=== PATIENT | male | born 1970 | race Caucasian/White ===

== ENCOUNTER 2017-12-26 19:11 | Emergency (ER) | payer OTHER ==
[2017-12-26 19:25] VITALS: BP 136/85
[2017-12-26] MEDS ORDERED: Sodium Chloride 0.9% 10 ML Syringe FLUSH PRN (19:50)
[2017-12-26] MEDS ORDERED: Sodium Chloride 0.9% 1,000 ML IV ONE (20:06)
[2017-12-26] MEDS ORDERED: SUMAtriptan 50 MG Tab PO ONE (20:07)
--- NOTE | 2017-12-26 20:23 | EDM.PDOC ---
ED HPI GENERAL MEDICAL PROBLEM - General Chief Complaint: Headache Stated Complaint: headache Time Seen by Provider: 12/26/17 19:13 Source of Information: Reports: Patient History Limitations: Reports: No Limitations - History of Present Illness INITIAL COMMENTS - FREE TEXT/NARRATIVE: One week history of headache. Worse headache of life. Gradually worsening. Located behind right eye/forehead. Vision feels blurry at times. No ENT complaints. No new neck pain (has chronic neck/back pain and previous fusion surgeries). Denies focal neuro changes. No nausea/emesis. Did have some loose stools several days ago. Has photophobia. No other reported changes. Did start Wellbutrin approximately one month ago. No other medication/ supplement changes. 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 Headache Pain Score (Numeric/FACES): 8 - Related Data Allergies Allergy/AdvReac Type Severity Reaction Status Date / Time No Known Allergies Allergy Verified 12/26/17 19:12 Home Meds: Home Meds Pantoprazole Sodium [Protonix] 40 mg PO DAILY 01/10/14 [History] Excedrine Extra Strength 2 tab PO Q6H 12/26/17 [History] Ibuprofen [Advil] 600 mg PO Q6H 12/26/17 [History] buPROPion HCl [Wellbutrin SR] 150 mg PO BID 12/26/17 [History] Past Medical History Gastrointestinal History: Reports: GERD - Past Surgical History Neurological Surgical History: Reports: C-Spine (fusion), Spinal Fusion Social & Family History - Family History Family Medical History: Noncontributory - Tobacco Use Smoking Status *Q: Current Every Day Smoker Years of Tobacco use: 20 Used Tobacco, but Quit: No Second Hand Smoke Exposure: No - Alcohol Use Days Per Week of Alcohol Use: 1 Number of Drinks Per Day: 4 Total Drinks Per Week: 4 - Recreational Drug Use Recreational Drug Use: No Drug Use in Last 12 Months: No ED ROS GENERAL - Review of Systems Review Of Systems: See Below Constitutional: Reports: Decreased Appetite. Denies: Fever, Chills, Weakness, Night Sweats, Diaphoresis, Weight Loss, Weight Gain HEENT: Reports: Vision Change. Denies: Dental Pain, Ear Discharge, Ear Pain, Eye Discharge, Rhinitis, Throat Pain, Throat Swelling, Vertigo Respiratory: Reports: No Symptoms Cardiovascular: Reports: No Symptoms Endocrine: Reports: No Symptoms GI/Abdominal: Reports: No Symptoms : Reports: No Symptoms Musculoskeletal: Reports: No Symptoms (no acute changes) Skin: Reports: No Symptoms Neurological: Reports: Headache. Denies: Confusion, Dizziness, Numbness, Paresthesia, Pre-Existing Deficit, Seizure, Syncope, Trouble Speaking, Difficulty Walking, Weakness, Change in Speech, Gait Disturbance Psychiatric: Reports: No Symptoms Hematologic/Lymphatic: Reports: No Symptoms - Physical Exam Exam: See Below Exam Limited By: No Limitations General Appearance: Alert, WD/WN, No Apparent Distress Eye Exam: Bilateral Eye: EOMI, PERRL Ears: Normal External Exam, Normal Canal, Hearing Grossly Normal, Normal TMs Nose: Normal Inspection, Normal Mucosa, No Blood Throat/Mouth: Normal Inspection, Normal Lips, Normal Voice, No Airway Compromise Head Exam: Atraumatic, Normocephalic Neck: Normal Inspection, Supple, Non-Tender, Full Range of Motion Respiratory/Chest: No Respiratory Distress, Lungs Clear, Normal Breath Sounds, No Accessory Muscle Use Cardiovascular: Normal Peripheral Pulses, Regular Rate, Rhythm, No Edema, No Murmur GI/Abdominal: Normal Bowel Sounds, Soft, Non-Tender, No Distention (Male) Exam: Deferred Rectal (Males) Exam: Deferred Neuro Exam (Abbreviated): Alert, Oriented, CN II-XII Intact, Normal Cognition, Normal Gait, Normal Reflexes, No Motor/Sensory Deficits DTR: 1+: Bicep (R), Bicep (L), Patella (R), Patella (L) Back Exam: No: CVA Tenderness (L), CVA Tenderness (R) Extremities: Normal Inspection, Normal Range of Motion, Non-Tender, No Pedal Edema, Normal Capillary Refill Psychiatric: Normal Affect, Normal Mood Skin Exam: Warm, Dry, Intact, Normal Color Course - Vital Signs Last Recorded V/S: Last Vital Signs Temp 36.7 C 12/26/17 19:24 Pulse 86 12/26/17 19:24 Resp 20 12/26/17 19:24 BP 136/85 12/26/17 19:24 Pulse Ox 98 12/26/17 19:24 - Orders/Labs/Meds Orders: Active Orders 24 hr Category Date Time Status Oxygen Therapy Adult [Oxygen Therapy, ED] [RC] Care 12/26/17 19:41 Ordered ASDIRECTED Head wo Cont [CT] Stat Exams 12/26/17 19:40 Ordered Sodium Chloride 0.9% [Saline Flush] Med 12/26/17 19:50 Active 10 ml FLUSH ASDIRECTED PRN Saline Lock Insert [OM.PC] Routine Oth 12/26/17 19:50 Ordered Medication Orders Sodium Chloride (Saline Flush) 10 ml FLUSH ASDIRECTED PRN PRN Reason: Keep Vein Open Labs: Laboratory Tests 12/26/17 12/26/17 Range/Units 20:12 20:12 WBC 9.7 (4.0-10.2) K/uL RBC 4.68 (4.33-5.41) M/uL Hgb 14.2 (13.1-16.8) g/dL Hct 44.0 (39.0-49.0) % MCV 94.0 (84.0-98.0) fL MCH 30.3 (28.2-33.3) pg MCHC 32.3 (31.7-36.0) g/dL RDW 14.4 H (11.2-14.1) % Plt Count 214 (150-350) K/uL Neut % (Auto) 51.1 (45.0-80.0) % Lymph % (Auto) 36.0 (10.0-50.0) % Waldo % (Auto) 9.8 (2.0-14.0) % Eos % (Auto) 2.8 (0.0-5.0) % Baso % (Auto) 0.3 (0.0-2.0) % Neut # (Auto) 4.96 (1.40-7.00) K/uL Lymph # (Auto) 3.49 (0.50-3.50) K/uL Waldo # (Auto) 0.95 (0.00-1.00) K/uL Eos # (Auto) 0.27 (0.00-0.50) K/uL Baso # (Auto) 0.03 (0.00-0.20) K/uL Sodium 139 (136-145) mmol/L Potassium 4.0 (3.5-5.1) mmol/L Chloride 107 (98-107) mmol/L Carbon Dioxide 20.3 L (21.0-32.0) mmol/L BUN 20 H (7-18) mg/dL Creatinine 0.96 (0.51-1.17) mg/dL Est Cr Clr Drug Dosing 99.14 mL/min Estimated GFR (MDRD) > 60 mL/min Glucose 101 (74-106) mg/dL Calcium 8.9 (8.5-10.1) mg/dL Total Bilirubin 0.2 (0.2-1.0) mg/dL AST 22 (15-37) U/L ALT 55 (12-78) U/L Alkaline Phosphatase 87 (46-116) IU/L Total Protein 7.5 (6.4-8.2) g/dL Albumin 4.1 (3.4-5.0) g/dL Meds: Medications Generic Name Dose Route Start Last Admin Trade Name Freq PRN Reason Stop Dose Admin Sodium Chloride 10 ml 12/26/17 19:50 Saline Flush FLUSH ASDIRECTED PRN Keep Vein Open Discontinued Medications Generic Name Dose Route Start Last Admin Trade Name Freq PRN Reason Stop Dose Admin Diphenhydramine HCl 50 mg 12/26/17 21:09 12/26/17 21:19 Benadryl IVPUSH 12/26/17 21:10 50 mg ONETIME ONE Administration Fentanyl 100 mcg 12/26/17 21:08 12/26/17 21:18 Sublimaze IVPUSH 12/26/17 21:09 100 mcg ONETIME ONE Administration Sodium Chloride 1,000 mls @ 999 mls/hr 12/26/17 20:06 12/26/17 20:23 Normal Saline IV 12/26/17 21:06 999 mls/hr .BOLUS ONE Administration Ketorolac Tromethamine 30 mg 12/26/17 21:08 12/26/17 21:39 Toradol IVPUSH 12/26/17 21:09 30 mg ONETIME ONE Administration Methylprednisolone Sodium Succinate 125 mg 12/26/17 21:08 12/26/17 21:18 Solu-Medrol IVPUSH 12/26/17 21:09 125 mg ONETIME ONE Administration Sumatriptan Succinate 50 mg 12/26/17 20:07 12/26/17 20:24 Imitrex PO 12/26/17 20:08 50 mg ONETIME ONE Administration - Radiology Interpretation Free Text/Narrative:: CT unremarkable for acute change per Radiology reading. CT Results Date: 12/26/17 - Re-Assessments/Exams Free Text/Narrative Re-Assessment/Exam: 12/26/17 21:48 Unremarkable labs/CT No change in pain with oxygen nor with Imitrex. Differential includes cluster headache and side effect of Wellbutrin. Uncertain as to specific cause at this time. No insect bite exposure given time of year. No other symptoms to suggest viral infection or other type of infection. Will have patient hold Wellbutrin for this week. Pain did significantly improve after combination of IV fluids/Fentanyl/Toradol given. Benadryl and Solumedrol also included in treatment plan. Patient wishes to go home. He is to watch for changes and follow up with primary provider/eye provider Thursday or Thursday if symptoms persist. Departure - Departure Time of Disposition: 21:41 Disposition: Home, Self-Care 01 Condition: Good Clinical Impression: Chronic headache Qualifiers: Headache type: unspecified Intractability: intractable Qualified Code(s): R51 - Headache - Discharge Information Instructions: Cluster Headache, [id number], General Headache Without Cause, [id number] Referrals: Vasquez Mann NP [Primary Care Provider] - Forms: ED Department Discharge Additional Instructions: See how headache feels over the next few days. As we discussed, specific cause is uncertain at this time. Hold Wellbutrin this week as that can cause headache/vision changes. Recommend getting eye pressure/eyes checked early next week if symptoms have not resolved. Follow up with your primary provider this week if headache continues as further testing may be required. Continue to observe for changes/new symptoms that may help identify cause. - My Orders Last 24 Hours: My Active Orders 12/26/17 19:40 Head wo Cont [CT] Stat 12/26/17 19:41 Oxygen Therapy Adult [Oxygen Therapy, ED] [] ASDIRECTED 12/26/17 19:50 Sodium Chloride 0.9% [Saline Flush] 10 ml FLUSH ASDIRECTED PRN Saline Lock Insert [OM.PC] Routine - Assessment/Plan Last 24 Hours: My Active Orders 12/26/17 19:40 Head wo Cont [CT] Stat 12/26/17 19:41 Oxygen Therapy Adult [Oxygen Therapy, ED] [] ASDIRECTED 12/26/17 19:50 Sodium Chloride 0.9% [Saline Flush] 10 ml FLUSH ASDIRECTED PRN Saline Lock Insert [OM.PC] Routine
[2017-12-26 20:31] LABS: CHLORIDE,CL 107 mmol/L (98-107); SODIUM,NA 139 mmol/L (136-145)
[2017-12-26] MEDS ORDERED: fentaNYL 100 MCG/2 ML SDV IVPUSH ONE (21:08)
[2017-12-26] MEDS ORDERED: Ketorolac 30 MG/ML SDV IVPUSH ONE (21:08)
[2017-12-26] MEDS ORDERED: methylPREDNISolone Sodium Succinate 125 MG/2 ML SDV IVPUSH ONE (21:08)
[2017-12-26] MEDS ORDERED: diphenhydrAMINE 50 MG/ML SDV IVPUSH ONE (21:09)
== END 2017-12-26 22:00 | disposition home or self-care (01) ==
LOC: LL.ED 19:11
DX: R51 Headache (principal); G89.29 Other chronic pain; F17.210 Nicotine dependence, cigarettes, uncomplicated; Z79.899 Other long term (current) drug therapy
CPT/HCPCS: 36415; 70450; 80053; 85025; 96361; 96374; 96375; 99284; A9270-GY; J1200; J1885; J2930; J3010; J7030

== ENCOUNTER 2018-04-06 16:13 | Emergency (ER) | payer OTHER ==
[2018-04-06 16:17] VITALS: BP 156/90
[2018-04-06] MEDS: LORazepam 2 MG/ML SDV IM ONE (16:23)
[2018-04-06] MEDS: Ketorolac 60 MG/2 ML SDV IM ONE (16:24)
--- NOTE | 2018-04-06 16:26 | EDM.PDOC ---
ED HPI GENERAL MEDICAL PROBLEM - General Chief Complaint: General Stated Complaint: neck pain Time Seen by Provider: 04/06/18 16:15 Source of Information: Reports: Patient, Family History Limitations: Reports: No Limitations - History of Present Illness INITIAL COMMENTS - FREE TEXT/NARRATIVE: Patient is a 47-year-old who recently had his neck views about 4-5 per 5-6 weeks ago decided to mow the lawn while riding and mowing the lawn he bounced up and down a few times after finishing the lawn he went in to go warm bath and at that point severe muscle spasm and neck pain started patient was brought in to the ER for evaluation Onset: Today, Sudden Duration: Minutes: (90 minutes ago), Constant (Worse with movement) Location: Reports: Neck (Posterior neck) Quality: Reports: Sharp, Stabbing, Throbbing, Other (With movement) Severity: Moderate Improves with: Reports: Cold Therapy Worsens with: Reports: Heat Therapy Context: Reports: Activity Associated Symptoms: Reports: No Other Symptoms left sided neck pain Pain Score (Numeric/FACES): 8 - Related Data Allergies Allergy/AdvReac Type Severity Reaction Status Date / Time No Known Allergies Allergy Verified 04/06/18 16:17 Home Meds: Home Meds Omeprazole Magnesium [Prilosec Otc] 40 mg PO DAILY 04/06/18 [History] Past Medical History Gastrointestinal History: Reports: GERD - Past Surgical History Neurological Surgical History: Reports: C-Spine, Spinal Fusion Social & Family History - Family History Family Medical History: Noncontributory ED ROS GENERAL - Review of Systems Review Of Systems: See Below Constitutional: Reports: No Symptoms HEENT: Reports: No Symptoms Respiratory: Reports: No Symptoms Cardiovascular: Reports: No Symptoms Endocrine: Reports: No Symptoms GI/Abdominal: Reports: No Symptoms : Reports: No Symptoms Musculoskeletal: Reports: Neck Pain Skin: Reports: No Symptoms Neurological: Reports: No Symptoms Psychiatric: Reports: No Symptoms Hematologic/Lymphatic: Reports: No Symptoms Immunologic: Reports: No Symptoms ED EXAM, GENERAL - Physical Exam Exam: See Below Exam Limited By: No Limitations General Appearance: Alert, WD/WN, No Apparent Distress Ears: Normal External Exam, Normal Canal, Hearing Grossly Normal, Normal TMs Ear Exam: Bilateral Ear: Auricle Normal, Canal Normal, TM normal Nose: Normal Inspection, Normal Mucosa, No Blood Throat/Mouth: Normal Inspection, Normal Lips, Normal Teeth, Normal Gums, Normal Oropharynx, Normal Voice, No Airway Compromise Head: Atraumatic, Normocephalic Neck: Normal Inspection, Supple, Non-Tender, Full Range of Motion Respiratory/Chest: No Respiratory Distress, Lungs Clear, Normal Breath Sounds, No Accessory Muscle Use, Chest Non-Tender Cardiovascular: Normal Peripheral Pulses, Regular Rate, Rhythm, No Edema, No Gallop, No JVD, No Murmur, No Rub GI/Abdominal: Normal Bowel Sounds, Soft, Non-Tender, No Organomegaly, No Distention, No Abnormal Bruit, No Mass (Male) Exam: No Hernia, Normal Inspection, Normal Prostate, Circumcised Rectal (Males) Exam: Normal Exam Back Exam: Muscle Spasm, Paraspinal Tenderness, Vertebral Tenderness, Other ( Mostly in the neck) Extremities: Normal Inspection, Normal Range of Motion, Non-Tender, Normal Capillary Refill, No Pedal Edema Neurological: Alert, Oriented, CN II-XII Intact, Normal Cognition, Normal Gait, Normal Reflexes, No Motor/Sensory Deficits, Sensory/Motor Deficit (C6-C7 numbness reviewed MRI MRI shows stenosis at C5-C6 also importance reviewed x- rays of the neck revealed no changes in fusion with excellent appearing of the plates) Psychiatric: Normal Affect, Normal Mood Skin Exam: Warm, Dry, Intact, Normal Color, No Rash Lymphatic: No Adenopathy Course - Vital Signs Last Recorded V/S: Last Vital Signs Temp 98.5 F 04/06/18 16:14 Pulse 76 04/06/18 16:14 Resp 18 04/06/18 16:14 BP 156/90 H 04/06/18 16:14 Pulse Ox 100 04/06/18 16:14 - Orders/Labs/Meds Orders: Active Orders 24 hr Category Date Time Status C-Spine [Cervical Spine 2V or 3V] [CR] Stat Exams 04/06/18 17:11 Ordered Meds: Medications Discontinued Medications Generic Name Dose Route Start Last Admin Trade Name Freq PRN Reason Stop Dose Admin Hydromorphone HCl 2 mg 04/06/18 17:16 Dilaudid IM 04/06/18 17:17 ONETIME ONE Ketorolac Tromethamine 60 mg 04/06/18 16:19 04/06/18 16:24 Toradol IM 04/06/18 16:20 60 mg ONETIME ONE Administration Lorazepam 2 mg 04/06/18 16:18 04/06/18 16:23 Ativan IM 04/06/18 16:19 2 mg ONETIME ONE Administration Departure - Departure Time of Disposition: 17:55 Disposition: Home, Self-Care 01 Condition: Poor Clinical Impression: Neck pain, acute - Discharge Information *PRESCRIPTION DRUG MONITORING PROGRAM REVIEWED*: Yes *COPY OF PRESCRIPTION DRUG MONITORING REPORT IN PATIENT FARHANA: Yes Referrals: Lisbeth Gamez [facility] [Primary Care Provider] - Forms: ED Department Discharge Care Plan Goals: ED HPI GENERAL MEDICAL PROBLEM - General Chief Complaint: General Stated Complaint: neck pain Time Seen by Provider: 04/06/18 16:15 Source of Information: Reports: Patient, Family History Limitations: Reports: No Limitations - History of Present Illness INITIAL COMMENTS - FREE TEXT/NARRATIVE: Patient is a 47-year-old who recently had his neck views about 4-5 per 5-6 weeks ago decided to mow the lawn while riding and mowing the lawn he bounced up and down a few times after finishing the lawn he went in to go warm bath and at that point severe muscle spasm and neck pain started patient was brought in to the ER for evaluation Onset: Today, Sudden Duration: Minutes: (90 minutes ago), Constant (Worse with movement) Location: Reports: Neck (Posterior neck) Quality: Reports: Sharp, Stabbing, Throbbing, Other (With movement) Severity: Moderate Improves with: Reports: Cold Therapy Worsens with: Reports: Heat Therapy Context: Reports: Activity Associated Symptoms: Reports: No Other Symptoms left sided neck pain Pain Score (Numeric/FACES): 8 - Related Data Allergies Allergy/AdvReac Type Severity Reaction Status Date / Time No Known Allergies Allergy Verified 04/06/18 16:17 Home Meds: Home Meds Omeprazole Magnesium [Prilosec Otc] 40 mg PO DAILY 04/06/18 [History] Past Medical History Gastrointestinal History: Reports: GERD - Past Surgical History Neurological Surgical History: Reports: C-Spine, Spinal Fusion Social & Family History - Family History Family Medical History: Noncontributory ED ROS GENERAL - Review of Systems Review Of Systems: See Below Constitutional: Reports: No Symptoms HEENT: Reports: No Symptoms Respiratory: Reports: No Symptoms Cardiovascular: Reports: No Symptoms Endocrine: Reports: No Symptoms GI/Abdominal: Reports: No Symptoms : Reports: No Symptoms Musculoskeletal: Reports: Neck Pain Skin: Reports: No Symptoms Neurological: Reports: No Symptoms Psychiatric: Reports: No Symptoms Hematologic/Lymphatic: Reports: No Symptoms Immunologic: Reports: No Symptoms ED EXAM, GENERAL - Physical Exam Exam Limited By: No Limitations General Appearance: Alert, WD/WN, No Apparent Distress Ears: Normal External Exam, Normal Canal, Hearing Grossly Normal, Normal TMs Ear Exam: Bilateral Ear: Auricle Normal, Canal Normal, TM normal Nose: Normal Inspection, Normal Mucosa, No Blood Throat/Mouth: Normal Inspection, Normal Lips, Normal Teeth, Normal Gums, Normal Oropharynx, Normal Voice, No Airway Compromise Head: Atraumatic, Normocephalic Neck: Normal Inspection, Supple, Non-Tender, Full Range of Motion Respiratory/Chest: No Respiratory Distress, Lungs Clear, Normal Breath Sounds, No Accessory Muscle Use, Chest Non-Tender Cardiovascular: Normal Peripheral Pulses, Regular Rate, Rhythm, No Edema, No Gallop, No JVD, No Murmur, No Rub GI/Abdominal: Normal Bowel Sounds, Soft, Non-Tender, No Organomegaly, No Distention, No Abnormal Bruit, No Mass (Male) Exam: No Hernia, Normal Inspection, Normal Prostate, Circumcised Rectal (Males) Exam: Normal Exam Back Exam: Muscle Spasm, Paraspinal Tenderness, Vertebral Tenderness, Other ( Mostly in the neck) Extremities: Normal Inspection, Normal Range of Motion, Non-Tender, Normal Capillary Refill, No Pedal Edema Neurological: Alert, Oriented, CN II-XII Intact, Normal Cognition, Normal Gait, Normal Reflexes, No Motor/Sensory Deficits Psychiatric: Normal Affect, Normal Mood Skin Exam: Warm, Dry, Intact, Normal Color, No Rash Lymphatic: No Adenopathy Course - Vital Signs Last Recorded V/S: Last Vital Signs Temp 98.5 F 04/06/18 16:14 Pulse 76 04/06/18 16:14 Resp 18 04/06/18 16:14 BP 156/90 H 04/06/18 16:14 Pulse Ox 100 04/06/18 16:14 - Orders/Labs/Meds Orders: Active Orders 24 hr Category Date Time Status C-Spine [Cervical Spine 2V or 3V] [CR] Stat Exams 04/06/18 17:11 Ordered Meds: Medications Discontinued Medications Generic Name Dose Route Start Last Admin Trade Name Noe PRN Reason Stop Dose Admin Hydromorphone HCl 2 mg 04/06/18 17:16 Dilaudid IM 04/06/18 17:17 ONETIME ONE Ketorolac Tromethamine 60 mg 04/06/18 16:19 04/06/18 16:24 Toradol IM 04/06/18 16:20 60 mg ONETIME ONE Administration Lorazepam 2 mg 04/06/18 16:18 04/06/18 16:23 Ativan IM 04/06/18 16:19 2 mg ONETIME ONE Administration Departure - Departure Disposition: Home, Self-Care 01 Condition: Poor Clinical Impression: Neck pain, acute - Discharge Information *PRESCRIPTION DRUG MONITORING PROGRAM REVIEWED*: Yes *COPY OF PRESCRIPTION DRUG MONITORING REPORT IN PATIENT FARHANA: Yes Referrals: Lisbeth Gamez, [facility] [Primary Care Provider] - Forms: ED Department Discharge - My Orders Last 24 Hours: My Active Orders 04/06/18 17:11 C-Spine [Cervical Spine 2V or 3V] [CR] Stat - Assessment/Plan Last 24 Hours: My Active Orders 04/06/18 17:11 C-Spine [Cervical Spine 2V or 3V] [CR] Stat Patient seen reviewed history of chronic neck pain with recent fusion about 5 weeks ago at this time patient states that 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 and then took a hot shower which started the pain at this time I reviewed the MRI which revealed 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 - Problem List & Annotations (1) Neck pain, acute SNOMED Code(s): 14020952, 940307679 Code(s): M54.2 - CERVICALGIA Status: Acute Current Visit: Yes Annotation/Comment:: Reviewed x-ray at some placement of plates numbness at the level of C7 on the left which is where his stenosis is not at this time we'll give him 2 mg of Dilaudid IM +2 mg of Ativan for muscle relaxation reviewed of drug prescription program we will go ahead and add hydrocodone 5//25 one tablet every 6 hours for pain plus Valium 10 every 6 hours for muscle relaxant patient will be sent home after the Dilaudid injections - Problem List Review Problem List Initiated/Reviewed/Updated: Yes - My Orders Last 24 Hours: My Active Orders 04/06/18 17:11 C-Spine [Cervical Spine 2V or 3V] [CR] Stat - Assessment/Plan Last 24 Hours: My Active Orders 04/06/18 17:11 C-Spine [Cervical Spine 2V or 3V] [CR] Stat Plan: Patient to follow-up with neurosurgery as needed
[2018-04-06] MEDS: HYDROmorphone 2 MG/ML SDV IM ONE (17:47)
== END 2018-04-06 18:07 | disposition home or self-care (01) ==
LOC: LL.ED 16:13
DX: M54.2 Cervicalgia (principal); K21.9 Gastro-esophageal reflux disease without esophagitis
CPT/HCPCS: 72040; 96372; 99283; J1170; J1885; J2060

== ENCOUNTER 2020-03-31 11:22 | Emergency (ER) | payer OTHER ==
--- NOTE | 2020-03-31 11:29 | EDM.PDOC ---
ED HPI GENERAL MEDICAL PROBLEM - General Chief Complaint: Back Pain or Injury Stated Complaint: back pain Time Seen by Provider: 03/31/20 11:28 Source of Information: Reports: Patient, Family (), Old Records ([facility] chart/EMR) History Limitations: Reports: No Limitations - History of Present Illness INITIAL COMMENTS - FREE TEXT/NARRATIVE: The patient was brought to the emergency room via private automobile by his for evaluation of sudden onset acute 8/10 mostly right-sided lower back pain and spasms with a long history of chronic low back pain requiring multiple surgeries as below. Note that the patient bent over to sweet pickle maker a 20 pound bag of fertilizer at a friend's home on 03/27 without actually picking up the bag and experienced acute back pain at that time as above. He also has some paresthesias extending into the right scrotal area with symptoms refractory to OTC Aleve and recently prescribed methocarbamol after an office visit with BUDDY Coto from [facility] in [place] on 03/28. He denies any leg weakness or other change in his neurological status with no improvement after recent office visit as above. His arthritis is otherwise stable. No recent history of abdominal pain, heartburn, nausea, diarrhea, melena, gross hematochezia, or any food intolerance, including fatty foods, etc.. He denies any gross hematuria, colic, or other UTI symptoms. The patient denies any chest pain/pressure, heart flutter, dizziness, orthostasis, orthopnea, diaphoresis, recent decreased exercise tolerance, or any other anginal-type symptoms. The patient also denies any recent fever, cough, wheezing, dyspnea, etc.. He did take his morning medications today. Onset: Sudden Onset Date: 03/27/20 Duration: Constant, Getting Worse Location: Reports: Back, Radiates to (As above). Denies: Head, Face, Neck, Chest, Abdomen, Lower Extremity, Left, Lower Extremity, Right Quality: Reports: Same as Previous Episode, Stabbing, Throbbing Severity: Severe Improves with: Reports: None Worsens with: Reports: None Context: Reports: Trauma (Minor as above) Associated Symptoms: Denies: Confusion, Cough, Diaphoresis, Fever/Chills, Headaches, Loss of Appetite, Malaise, Nausea/Vomiting, Shortness of Breath, Syncope, Weakness Treatments SUPERINTENDENT TRANSPORTATION: Reports: NSAIDS, Other Medication(s) (As above) Right Lower Back Pain Score (Numeric/FACES): 8 - Related Data Allergies Allergy/AdvReac Type Severity Reaction Status Date / Time No Known Allergies Allergy Verified 03/31/20 12:24 Home Meds: Home Meds Omeprazole Magnesium [Prilosec Otc] 20 mg PO DAILY 04/06/18 [History] Multivit-Min/FA/Lycopen/Lutein [Men 50 Plus Multivitamin Tab] 1 tab PO DAILY 03/31/20 [History] Naproxen Sodium [Aleve] 2 tab PO BID 03/31/20 [History] diazePAM [Valium] 10 mg PO QID PRN #10 tablet 03/31/20 [Rx] Past Medical History Gastrointestinal History: Reports: Diverticulosis, GERD Other Gastrointestinal History: Pyloric stenosis as an requiring surgery as below. Musculoskeletal History: Reports: Arthritis, Back Pain, Chronic, Neck Pain, Chronic, Osteoarthritis, Other (See Below) Other Musculoskeletal History: Severe degenerative neck and low back disease with secondary radiculopathy requiring multiple surgeries as below. Neurological History: Reports: Headaches, Chronic Psychiatric History: Reports: Anxiety, Depression - Past Surgical History GI Surgical History: Reports: Colonoscopy, EGD, Hernia, Abdominal, Other (See Below) Other GI Surgeries/Procedures: Pyloric stenosis repair as an infant. Ventral abdominal/umbilical hernia repair in 2017. EGD and colonoscopy on 01/12/13. Neurological Surgical History: Reports: C-Spine, Discectomy, Lumbar Spine, Spinal Fusion, Other (See Below) Other Neurological Surgeries/Procedures: Initial cervical spine fusion from C5- C7 on 2014 with subsequent fusion of C3-C5 in 2017. L3-L5 spinal fusion at age 24. Musculoskeletal Surgical History: Reports: Arthroscopic Procedure, Shoulder Surgery, Other (See Below) Other Musculoskeletal Surgeries/Procedures:: Right shoulder surgery 4 with the last surgery on 06/20/15 with rotator cuff repair and previous right distal clavicular resection and acromioplasty. - Past Imaging History Past Imaging History: Reports: CAT Scan (CT of the C-spine on 02/08/18. CT of the chest, abdomen, and pelvis on 12/11/[address] scan of the abdomen and pelvis on 05/13/18. He of the head on 12/26/17.), MRI (MRI of the cervical spine on 01/11/18, 07/12/13, 08/13/10, 10/18/09, and 11/25/05. MRI of the left knee on 11/20/10. MRI of the right shoulder on 05/08/08 and 02/19/15.), Ultrasound (Right lower quadrant abdominal ultrasound on 01/06/14.), Venous Doppler (Negative venous Doppler study of the left leg on 11/08/10.) Social & Family History - Family History Family Medical History: Noncontributory Oncologic: Reports: Lung, Other (See Below) Other Oncologic Family History: Father with fatal esophageal/gastric cancer in his 60s with history of tobacco use. Paternal and maternal grandparents with lung cancer. - Tobacco Use Smoking Status *Q: Current Every Day Smoker Tobacco Use Within Last Twelve Months: Snuff/Dip Years of Tobacco use: 30 Packs/Tins Daily: 0.5 Packs/Tins Daily Comment: Started smoking cigarettes and using chewing tobacco at age 16 with current change tobacco use of 1/2 can per day and smoking about 23 cigarettes per day Used Tobacco, but Quit: No Smoking Cessation Information Provided To Patient: Yes Second Hand Smoke Exposure: No Second Hand Smoke Education Provided: No - Tobacco Core Measures Tobacco Use/Smoking Within Last 30 Days: Yes - Caffeine Use Caffeine Use: Reports: Other Caffeine Use Comment: Anastasia - Living Situation & Occupation Living situation: Reports: (Does have children), with Spouse 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 Had previously been in the [employer].) ED ROS GENERAL - Review of Systems Review Of Systems: Comprehensive ROS is negative, except as noted in HPI. ED EXAM,LOWER BACK PAIN/INJURY - Physical Exam Exam: See Below Exam Limited By: No Limitations General Appearance: Alert, WD/WN, No Apparent Distress, Anxious (Mild) Head: Atraumatic, Normocephalic Neck: Normal Inspection, Supple, Non-Tender, Full Range of Motion. No: Lymphadenopathy (L), Lymphadenopathy (R), Thyromegaly Respiratory/Chest: No Respiratory Distress, Lungs Clear, Normal Breath Sounds, No Accessory Muscle Use, Chest Non-Tender. No: Pleural Rub, Retractions Cardiovascular: Normal Peripheral Pulses, Regular Rate, Rhythm, No Edema, No Gallop, No JVD, No Murmur, No Rub, Tachycardia (Occasional borderline). No: Gallop/S3, Gallop/S4 GI/Abdominal: Normal Bowel Sounds, Soft, Non-Tender, No Organomegaly, No Distention, No Abnormal Bruit, No Mass, Other (Obese). No: Guarding (Male) Exam: Deferred Rectal (Males) Exam: Deferred Back Exam: Decreased Range of Motion (Low back secondary to pain and spasms), Muscle Spasm (Moderate mid right lumbar), Paraspinal Tenderness (Mid right lumbar as abovemild). No: Vertebral Tenderness Extremities: Normal Inspection, Normal Range of Motion, Non-Tender, No Pedal Edema, Normal Capillary Refill. No: Tracy's Sign Neurological: Alert, CN II-XII Intact, Normal Gait, No Motor/Sensory Deficits Psychiatric: Anxious (Mild), Depressed Mood (Borderline) Skin Exam: Warm, Dry, Intact, Normal Color, No Rash. No: Diaphoretic, Wound/Incision Lymphatic: No Adenopathy Course - Vital Signs Last Recorded V/S: Last Vital Signs Temp 36.9 C 03/31/20 11:59 Pulse 107 H 03/31/20 12:04 Resp 20 03/31/20 12:04 BP 141/82 H 03/31/20 12:04 Pulse Ox 100 03/31/20 12:04 Vital Signs - 24 hr 03/31/20 03/31/20 11:59 12:04 Temperature [ 36.9 C Oral] Pulse, 107 H 107 H Peripheral [ Left Pulse Oximetry] Respiratory 20 20 Rate Blood Pressure 141/82 H 141/82 H [Right Upper Arm] O2 Sat by Pulse 100 100 Oximetry - Orders/Labs/Meds Orders: Active Orders 24 hr Category Date Time Status Obtain Past Medical Record [OM.PC] Routine Oth 03/31/20 11:36 Active Labs: None Meds: Medications Discontinued Medications Generic Name Dose Route Start Last Admin Trade Name Freq PRN Reason Stop Dose Admin Diazepam 5 mg 03/31/20 11:36 03/31/20 11:50 Valium IVPUSH 03/31/20 11:37 5 mg ONETIME ONE Administration Hydromorphone HCl 1 mg 03/31/20 11:37 03/31/20 11:50 Dilaudid IVPUSH 03/31/20 11:38 1 mg ONETIME ONE Administration Ondansetron HCl 4 mg 03/31/20 11:36 03/31/20 11:50 Zofran IVPUSH 03/31/20 11:37 4 mg ONETIME ONE Administration - Radiology Interpretation Free Text/Narrative:: None Departure - Departure Time of Disposition: 12:55 Disposition: Home, Self-Care 01 Condition: Good Clinical Impression: Peptic reflux disease, Tobacco abuse counseling Low back pain Qualifiers: Chronicity: acute Back pain laterality: right Sciatica presence: with sciatica Sciatica laterality: sciatica of right side Qualified Code(s): M54.41 - Lumbago with sciatica, right side Osteoarthritis Qualifiers: Osteoarthritis location: multiple joints Osteoarthritis type: primary Qualified Code(s): M89.49 - Other hypertrophic osteoarthropathy, multiple sites - Discharge Information *PRESCRIPTION DRUG MONITORING PROGRAM REVIEWED*: Not Applicable *COPY OF PRESCRIPTION DRUG MONITORING REPORT IN PATIENT FARHANA: Not Applicable Prescriptions: diazePAM [Valium] 10 mg PO QID PRN #10 tablet PRN Reason: Spasms Instructions: Steps to Quit Smoking, [id number], Health Risks of Smoking, Acute Back Pain, Adult, Back Exercises, [id number], Smokeless Tobacco Information, Adult Referrals: PCP,Unknown [Primary Care Provider] - Forms: ED Department Discharge, ED Return to Work/School Form Additional Instructions: 1. Followup with your regular provider in 5-7 days as directed. Bring these discharge instructions with you to that visit. 2. Tylenol 650 mg by mouth every 4 hours and/or OTC Aleve 12 tabs by mouth every 12 hours with food as directed./needed. 3. BenGay or equivalent, heating pad, and/or ice packs as directed. 4. Sedation precautions with no driving, etc. for 18 hours because of emergency room medications. 5. Sedation precautions with Valium as discussed with no driving or return to work while on this medication. 6. Stop all tobacco use USAMA as directed/per provided information and consider contacting Quit LIne, etc.. 7. Immediately after this visit verify that your cellular telephone's voicemail has been activated and is empty. Also verify that your home telephone's answering machine is operating properly and has space to receive messages. Note that it is sometimes necessary for us to be able to contact you at a later date to discuss your medical care. 8. Please remember that we are ALWAYS here for you and want to answer any questions you may have. Feel free to call the hospital any time and we call you back USAMA. 9. Work excuse- See Form Sepsis Event Note (ED) - Focused Exam Vital Signs: Vital Signs Temp Pulse Resp BP Pulse Ox 03/31/20 12:04 107 H 20 141/82 H 100 03/31/20 11:59 36.9 C 107 H 20 141/82 H 100 - Problem List & Annotations (1) Low back pain SNOMED Code(s): 422389864 Code(s): M54.5 - LOW BACK PAIN Status: Acute Priority: High Onset Date: 03/27/20 Annotation/Comment:: Acute exacerbation of the patient's chronic low back pain. Various therapeutic options were discussed with the patient and his , including lumbar x-rays and CT scan of the lumbar spine today. Secondary to long history of chronic low back pain and insignificant acute injury history as above x-rays will be delayed at this time. Per their history the patient apparently does have a "loose screw" in his lumbar fixation with his orthopedic surgeon wishing not to intervene at this time. Overall good results with IV diazepam and IV Dilaudid during his emergency room care. His muscle relaxant will be changed to low-dose oral diazepam with emergency room prescription provided. Otherwise symptomatic relief as per discharge instructions. Work excuse provided. Sedation precautions of today's medications and also sedation/addiction potential of diazepam were extensively discussed. Close follow-up by his regular provider with consideration of repeat CT scan of the lumbar spine, re-referral to the pain clinic, reinitiation of PT/OT, etc. depending on his clinical course. They agree to discuss this further with their regular provider at the above follow-up. Note that ibuprofen is no longer effective for the patient with patient changing to Aleve about one week ago. Qualifiers: Chronicity: acute Back pain laterality: right Sciatica presence: with sciatica Sciatica laterality: sciatica of right side Qualified Code(s): M54.41 - Lumbago with sciatica, right side (2) Osteoarthritis SNOMED Code(s): 357216299 Code(s): M19.90 - UNSPECIFIED OSTEOARTHRITIS, UNSPECIFIED SITE Status: Chronic Priority: Medium Annotation/Comment:: Otherwise stable by history. Qualifiers: Osteoarthritis location: multiple joints Osteoarthritis type: primary Qualified Code(s): M89.49 - Other hypertrophic osteoarthropathy, multiple sites (3) Peptic reflux disease SNOMED Code(s): 924544756 Code(s): K21.9 - GASTRO-ESOPHAGEAL REFLUX DISEASE WITHOUT ESOPHAGITIS Status: Chronic Priority: Medium Annotation/Comment:: Stable by history with current medical therapy despite regular Aleve use at this time. (4) Tobacco abuse counseling SNOMED Code(s): 478754000, 361463415, 734185185 Code(s): Z71.6 - TOBACCO ABUSE COUNSELING Status: Chronic Priority: Medium Annotation/Comment:: Tobacco cessation strongly encouraged with information provided at discharge. He was also counseled concerning the use of Nicorette gum. - Problem List Review Problem List Initiated/Reviewed/Updated: Yes - My Orders Last 24 Hours: My Active Orders 03/31/20 11:36 Obtain Past Medical Record [OM.PC] Routine - Assessment/Plan Last 24 Hours: My Active Orders 03/31/20 11:36 Obtain Past Medical Record [OM.PC] Routine Assessment:: As above Plan: As above. Extensive precautions were given to the patient and his , who are in agreement with the treatment plan. See Patient Instructions for further treatment and plan.
[2020-03-31] MEDS ORDERED: Ondansetron 4 MG/2 ML SDV IVPUSH ONE (11:36)
[2020-03-31] MEDS ORDERED: HYDROmorphone 1 MG/ML Syringe IVPUSH ONE (11:37)
[2020-03-31 12:00] VITALS: BP 141/82; PULSE 107
== END 2020-03-31 12:55 | disposition home or self-care (01) ==
LOC: LL.ED 11:22
DX: M54.41 Lumbago with sciatica, right side (principal); M89.49 Other hypertrophic osteoarthropathy, multiple sites; K21.9 Gastro-esophageal reflux disease without esophagitis; Z71.6 Tobacco abuse counseling; F17.210 Nicotine dependence, cigarettes, uncomplicated; Z79.899 Other long term (current) drug therapy
CPT/HCPCS: 96374; 96375; 99283; 99283-25; J1170; J2405; J3360

== ENCOUNTER 2020-06-17 09:50 | Emergency (ER) | payer OTHER ==
[2020-06-17 10:02] VITALS: BP 132/75; PULSE 93
[2020-06-17] MEDS: Morphine 4 MG/ML Syringe IM ONE (10:24)
--- NOTE | 2020-06-17 10:28 | EDM.PDOC ---
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, Other Medication(s) bilat ear/jaw pain Pain Score (Numeric/FACES): 8 - Related Data Allergies Allergy/AdvReac Type Severity Reaction Status Date / Time No Known Allergies Allergy Verified 06/17/20 09:51 Home Meds: Home Meds Omeprazole Magnesium [Prilosec Otc] 20 mg PO DAILY 04/06/18 [History] Multivit-Min/FA/Lycopen/Lutein [Men 50 Plus Multivitamin Tab] 1 tab PO DAILY 03/31/20 [History] Naproxen Sodium [Aleve] 2 tab PO BID PRN 03/31/20 [History] Acetaminophen [Tylenol Extra Strength] 1,000 mg PO Q6HR PRN 06/17/20 [History] Ibuprofen 800 mg PO Q6H PRN 06/17/20 [History] Past Medical History HEENT History: Reports: Impaired Vision Cardiovascular History: Reports: None Respiratory History: Reports: Other (See Below) Other Respiratory History: questionable sleep apnea, pt obtaining sleep study Gastrointestinal History: Reports: GERD Other Gastrointestinal History: Pyloric stenosis as an infant requiring surgery as below. Genitourinary History: Reports: None Musculoskeletal History: Reports: Arthritis, Back Pain, Chronic, Neck Pain, Chronic, Osteoarthritis, Other (See Below) Other Musculoskeletal History: Severe degenerative neck and low back disease with secondary radiculopathy requiring multiple surgeries as below. Neurological History: Reports: Concussion, Headaches, Chronic Psychiatric History: Reports: Anxiety, Depression Endocrine/Metabolic History: Reports: None Oncologic (Cancer) History: Reports: None Dermatologic History: Reports: None - Infectious Disease History Infectious Disease History: Reports: Chicken Pox - Past Surgical History HEENT Surgical History: Reports: Laser Surgery, Oral Surgery Cardiovascular Surgical History: Reports: None GI Surgical History: Reports: Colonoscopy, EGD, Hernia, Abdominal, Other (See Below) Other GI Surgeries/Procedures: Pyloric stenosis repair as an . Ventral abdominal/umbilical hernia repair in 2017. EGD and colonoscopy on 01/12/13. Neurological Surgical History: Reports: C-Spine, Discectomy, Lumbar Spine, Spinal Fusion, Other (See Below) Other Neurological Surgeries/Procedures: Initial cervical spine fusion from C5- C7 on 2014 with subsequent fusion of C3-C5 in 2017. L3-L5 spinal fusion at age 24. Musculoskeletal Surgical History: Reports: Arthroscopic Procedure, Shoulder Surgery, Other (See Below) Other Musculoskeletal Surgeries/Procedures:: Right shoulder surgery 4 with the last surgery on 06/20/15 with rotator cuff repair and previous right distal clavicular resection and acromioplasty. fusion of cervial spine. - Past Imaging History Past Imaging History: Reports: CAT Scan (CT of the C-spine on 02/08/18. CT of the chest, abdomen, and pelvis on 12/11/[address] scan of the abdomen and pelvis on 05/13/18. He of the head on 12/26/17.), MRI (MRI of the cervical spine on 01/11/18, 07/12/13, 08/13/10, 10/18/09, and 11/25/05. MRI of the left knee on 11/20/10. MRI of the right shoulder on 05/08/08 and 02/19/15.), Ultrasound (Right lower quadrant abdominal ultrasound on 01/06/14.), Venous Doppler (Negative venous Doppler study of the left leg on 11/08/10.) Social & Family History - Family History Family Medical History: Noncontributory Oncologic: Reports: Lung, Other (See Below) Other Oncologic Family History: Father with fatal esophageal/gastric cancer in his 60s with history of tobacco use. Paternal and maternal grandparents with lung cancer. 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 Had previously been in the [employer].) ED ROS ENT - Review of Systems Review Of Systems: See Below HEENT: Reports: Ear Pain, Other (jaw pain) ED EXAM, ENT - Physical Exam Exam: See Below General Appearance: Mild Distress Ears: Normal TMs Mouth/Throat: Normal Teeth, Other (Left parotid gland swollen and tender No erythema Teeth without obvious dental caries) Course - Vital Signs Last Recorded V/S: Last Vital Signs Temp 97.1 F 06/17/20 09:54 Pulse 93 06/17/20 09:54 Resp 18 06/17/20 09:54 BP 132/75 06/17/20 09:54 Pulse Ox 95 06/17/20 09:54 - Orders/Labs/Meds Meds: Medications Discontinued Medications Generic Name Dose Route Start Last Admin Trade Name Noe PRN Reason Stop Dose Admin Morphine Sulfate 4 mg 06/17/20 10:20 Morphine IM 06/17/20 10:21 ONETIME ONE - Re-Assessments/Exams Free Text/Narrative Re-Assessment/Exam: 06/17/20 10:25 Pt given Morphine 4 mg IM Rx T#3 1 every 6 hours Rx Clindamycin 150 mg every 6 hours Departure - Departure Time of Disposition: 10:30 Disposition: Home, Self-Care 01 Clinical Impression: Jaw pain - Discharge Information *PRESCRIPTION DRUG MONITORING PROGRAM REVIEWED*: Yes *COPY OF PRESCRIPTION DRUG MONITORING REPORT IN PATIENT FARHANA: Not Applicable Instructions: Acute Pain, Adult Referrals: Ene Mullins NP [Primary Care Provider] - Additional Instructions: Follow up in clinic To dentist Rx Clindamycin 150 mg every 6 hours Rx Tylenol #3 One every 6 hours for pain Sepsis Event Note (ED) - Evaluation Sepsis Screening Result: No Definite Risk - Focused Exam Vital Signs: Vital Signs Temp Pulse Resp BP Pulse Ox 06/17/20 09:54 97.1 F 93 18 132/75 95
== END 2020-06-17 10:38 | disposition home or self-care (01) ==
LOC: LL.ED 09:50
DX: R68.84 Jaw pain (principal); K21.9 Gastro-esophageal reflux disease without esophagitis; M19.90 Unspecified osteoarthritis, unspecified site; F17.210 Nicotine dependence, cigarettes, uncomplicated; Z79.899 Other long term (current) drug therapy; Z79.1 Long term (current) use of non-steroidal anti-inflammatories (NSAID)
CPT/HCPCS: 96372; 99283; J2270

== ENCOUNTER 2024-07-21 09:48 | Emergency (ER) | payer OTHER ==
[2024-07-21 09:59] VITALS: BP 159/90; PULSE 90
[2024-07-21] MEDS: Ketorolac 30 MG/ML SDV IM ONE (10:12)
[2024-07-21] MEDS: traMADol 50 MG Tab PO ONE (10:13)
== END 2024-07-21 10:15 | disposition home or self-care (01) ==
LOC: LL.ED 09:48
DX: M25.511 Pain in right shoulder (principal)
CPT/HCPCS: 96372; 99283; A9270-GY; J1885